=== PATIENT | female | born 1930 | race Caucasian/White ===

== ENCOUNTER 2017-09-30 15:31 | Inpatient (IN) | payer OTHER, BC ==
[~2017-09-30] VITALS: Ht 160 cm; Wt 50.0 kg
[2017-09-30 15:38] VITALS: Ht 160 cm; Wt 50.0 kg
[2017-09-30 16:43] LABS: CALCIUM 8.3 mg/dL (8.5-10.1); CARBON DIOXIDE 25.2 mmol/L (21-32); CHLORIDE SERUM 105 mmol/L (98-107); CREATININE SERUM 0.8 mg/dL (0.6-1.0); GLUCOSE SERUM 167 mg/dL (74-106); POTASSIUM SERUM 4.8 mmol/L (3.5-5.1); SODIUM SERUM 138 mmol/L (136-145)
[2017-09-30 16:48] LABS: ALKALINE PHOSPHATASE 67 U/L (46-116); ALT/SGPT 9 U/L (14-59); AST/SGOT 15 U/L (15-37); BILIRUBIN TOTAL 0.24 mg/dL (0.20-1.00); TOTAL PROTEIN, SERUM 5.5 g/dL (6.4-8.2)
[2017-09-30 16:49] LABS: ALBUMIN 1.9 g/dL (3.4-5.0)
[2017-09-30 16:53] LABS: RED CELL DISTRIBUTION WIDTH 17.5 % (11.5-14.5)
[2017-09-30 17:18] LABS: BAND NEUTROPHIL 0 % (0-10); BASOPHIL 0 % (0-2); MONOCYTE 3 % (0-7); PLATELET MORPHOLOGY PLATELETS INCREASED; SEGMENTED NEUTROPHILS 92 % (37-75); rbc morphology (normal/abnorm) ABNORMAL (NORMAL)
[2017-09-30 17:19] LABS: PLATELET COUNT 652 x10^3mcL (130-400)
[2017-09-30] MEDS ORDERED: AUG500 PO (17:47)
[2017-09-30] MEDS ORDERED: PROVENTIL0.09 MG/A1 INH (17:47)
[2017-09-30] MEDS ORDERED: LOVENOX30 MG/0.3 IJ (17:48)
[2017-09-30] MEDS ORDERED: GOOD SENSE ASP325 MG PO (17:48)
[2017-09-30] MEDS ORDERED: VITAMIN C500 M6 PO (17:48)
[2017-09-30] MEDS ORDERED: MUCINEX600 MG PO (17:49)
[2017-09-30] MEDS ORDERED: TOPROL XL25 MG PO (17:49)
[2017-09-30] MEDS ORDERED: MYRBETRIQ25 MG PO (17:49)
[2017-09-30] MEDS ORDERED: LACTULOSE10 GM/152 PO (17:49)
[2017-09-30 18:06] LABS: MAGNESIUM 1.6 mg/dL (1.8-2.4); PHOSPHOROUS 3.8 mg/dL (2.5-4.9)
[2017-09-30 18:07] LABS: CHOLESTEROL/HDL RATIO 2.7
[2017-09-30 18:16] LABS: FREE T4 1.22 ng/dL (0.76-1.46); FREE THYROXINE INDEX 2.1 ug/dL (1.4-4.5); T4(THYROXINE) 5.9 ug/dL (4.7-13.3)
[2017-09-30 18:23] LABS: RED BLOOD CELLS 2.9 M/mm3 (4.10-5.10)
[2017-09-30 18:42] LABS: IRON 27 ug/dL (50-170); TOTAL IRON BINDING CAPACITY 205 ug/dL (250-450)
[2017-09-30 19:10] VITALS: BP 107/51
[2017-09-30 19:17] VITALS: BP 127/85
[2017-10-01 01:37] LABS: BASOPHIL % 4.1 % (0-2); PLATELET COUNT 437 x10^3mcL (130-400); RED CELL DISTRIBUTION WIDTH 16.1 % (11.5-14.5)
[2017-10-01 05:27] VITALS: BP 105/41
[2017-10-01 06:37] LABS: CALCIUM 7.8 mg/dL (8.5-10.1); CARBON DIOXIDE 23.4 mmol/L (21-32); CHLORIDE SERUM 108 mmol/L (98-107); CREATININE SERUM 0.6 mg/dL (0.6-1.0); GLUCOSE SERUM 87 mg/dL (74-106); MAGNESIUM 2.2 mg/dL (1.8-2.4); PHOSPHOROUS 3.2 mg/dL (2.5-4.9); POTASSIUM SERUM 3.7 mmol/L (3.5-5.1); SODIUM SERUM 135 mmol/L (136-145)
[2017-10-01 07:24] LABS: BASOPHIL % 0.6 % (0-2); PLATELET COUNT 396 x10^3mcL (130-400)
[2017-10-01 09:35] VITALS: BP 89/54
[2017-10-01 13:53] VITALS: BP 112/47
[2017-10-01 17:20] VITALS: BP 114/41
[2017-10-01 17:53] LABS: BASOPHIL % 0.5 % (0-2); PLATELET COUNT 397 x10^3mcL (130-400)
[2017-10-01 18:15] LABS: RED CELL DISTRIBUTION WIDTH 16.3 % (11.5-14.5)
[2017-10-01 20:12] LABS: microscopic required? YES; urine erythrocyte 1+ (NEGATIVE)
[2017-10-01 20:43] VITALS: BP 106/56
[2017-10-01 21:34] LABS: AMPHETAMINE QUAL UR NONE DETECTED (See below)
[2017-10-01 23:26] LABS: T3 TOTAL 0.64 ng/mL
[2017-10-02 04:31] VITALS: BP 120/49
[2017-10-02 06:59] LABS: CALCIUM 7.6 mg/dL (8.5-10.1); CARBON DIOXIDE 23.7 mmol/L (21-32); CHLORIDE SERUM 109 mmol/L (98-107); CREATININE SERUM 0.5 mg/dL (0.6-1.0); GLUCOSE SERUM 78 mg/dL (74-106); MAGNESIUM 1.6 mg/dL (1.8-2.4); PHOSPHOROUS 2.3 mg/dL (2.5-4.9); SODIUM SERUM 142 mmol/L (136-145)
[2017-10-02 08:18] VITALS: BP 128/51
[2017-10-02 09:02] LABS: BASOPHIL % 0.8 % (0-2); PLATELET COUNT 364 x10^3mcL (130-400); RED CELL DISTRIBUTION WIDTH 16.7 % (11.5-14.5)
[2017-10-02 13:25] VITALS: BP 124/58
[2017-10-02 16:48] VITALS: BP 116/48
[2017-10-02 22:14] VITALS: BP 102/50
[2017-10-03 06:09] VITALS: BP 126/51
[2017-10-03 07:14] LABS: CALCIUM 8.1 mg/dL (8.5-10.1); CARBON DIOXIDE 23.8 mmol/L (21-32); CHLORIDE SERUM 106 mmol/L (98-107); GLUCOSE SERUM 76 mg/dL (74-106); MAGNESIUM 1.7 mg/dL (1.8-2.4); PHOSPHOROUS 2.6 mg/dL (2.5-4.9); POTASSIUM SERUM 3.4 mmol/L (3.5-5.1); SODIUM SERUM 139 mmol/L (136-145)
[2017-10-03 07:18] LABS: CREATININE SERUM 0.5 mg/dL (0.6-1.0)
[2017-10-03 08:02] LABS: BASOPHIL % 0.3 % (0-2); PLATELET COUNT 367 x10^3mcL (130-400)
[2017-10-03 08:04] LABS: RED CELL DISTRIBUTION WIDTH 17.2 % (11.5-14.5)
[2017-10-03 09:22] VITALS: BP 124/68
[2017-10-03] MEDS ORDERED: CLEOCIN HCL300 MG PO (10:58)
[2017-10-03] MEDS ORDERED: LEVAQUIN750 MG PO (10:58)
[2017-10-03] MEDS ORDERED: LAC PO (10:59)
[2017-10-03 13:25] VITALS: BP 124/68
[2017-10-03 13:35] VITALS: BP 120/53
[2017-10-03 14:14] LABS: CALCIUM 7.9 mg/dL (8.5-10.1); CARBON DIOXIDE 26.2 mmol/L (21-32); CHLORIDE SERUM 105 mmol/L (98-107); CREATININE SERUM 0.6 mg/dL (0.6-1.0); GLUCOSE SERUM 159 mg/dL (74-106); POTASSIUM SERUM 3.3 mmol/L (3.5-5.1); SODIUM SERUM 137 mmol/L (136-145)
[2017-10-03 17:40] VITALS: BP 146/65; BP 147/57
[2017-10-03] MEDS ORDERED: PANTOPRAZOLE SO40 M1 PO (17:45)
[2017-10-03 21:44] VITALS: BP 122/59
[2017-10-04 05:58] VITALS: BP 134/59
[2017-10-04 06:07] LABS: BASOPHIL % 1.3 % (0-2); PLATELET COUNT 388 x10^3mcL (130-400)
[2017-10-04 06:24] LABS: CALCIUM 8.1 mg/dL (8.5-10.1); CARBON DIOXIDE 25.4 mmol/L (21-32); CHLORIDE SERUM 108 mmol/L (98-107); CREATININE SERUM 0.5 mg/dL (0.6-1.0); GLUCOSE SERUM 100 mg/dL (74-106); MAGNESIUM 1.9 mg/dL (1.8-2.4); PHOSPHOROUS 2.8 mg/dL (2.5-4.9); POTASSIUM SERUM 3.6 mmol/L (3.5-5.1); SODIUM SERUM 138 mmol/L (136-145)
[2017-10-04 06:30] LABS: RED CELL DISTRIBUTION WIDTH 17.1 % (11.5-14.5)
[2017-10-04 09:11] VITALS: BP 134/59
[2017-10-04 09:33] VITALS: BP 124/57
== END 2017-10-04 10:15 | disposition hospice, home (50) | DRG 871 ==
LOC: ED 15:31 → DU 17:32
PROVIDERS: Emergency Medicine; Family Medicine; Family Medicine Sports Medicine; Internal Medicine
PROC: 0DB68ZX Excision of Stomach, Via Natural or Artificial Opening Endoscopic, Diagnostic (ICD-10-PCS; principal; 2017-10-02 12:30)
PROC: 0DJD8ZZ Inspection of Lower Intestinal Tract, Via Natural or Artificial Opening Endoscopic (ICD-10-PCS; 2017-10-02 12:30)
DX: A41.9 Sepsis, unspecified organism (principal); J69.0 Pneumonitis due to inhalation of food and vomit; G93.41 Metabolic encephalopathy; N17.0 Acute kidney failure with tubular necrosis; E43 Unspecified severe protein-calorie malnutrition; K57.31 Diverticulosis of large intestine without perforation or abscess with bleeding; K26.4 Chronic or unspecified duodenal ulcer with hemorrhage; Z68.1 Body mass index [BMI] 19.9 or less, adult; E86.0 Dehydration; K64.8 Other hemorrhoids; D64.9 Anemia, unspecified; E83.42 Hypomagnesemia; I10 Essential (primary) hypertension; E87.6 Hypokalemia
CPT/HCPCS: 43235; 45378; 83880; 84439; 92526-GN; 92610-GN; 94150; 97110-GP; 97116-GP; 97530-GP; C9113; G0480; J1200; J1610; J2250; J2310; J2543; J2916; J3010; J3370; J3475; J3490; J7030; J7040; J7050; J7620; P9016; Q0092; Q0163

== ENCOUNTER 2017-11-25 09:16 | Emergency (ER) | payer OTHER, BC ==
[~2017-11-25] VITALS: Ht 162.6 cm; Wt 49.9 kg
[~2017-11-25 09:16] MED LIST: AUG500 PO; CLEOCIN HCL300 MG PO; GOOD SENSE ASP325 MG PO; LAC PO; LACTULOSE10 GM/152 PO; LEVAQUIN750 MG PO; LOVENOX30 MG/0.3 IJ; MUCINEX600 MG PO; MYRBETRIQ25 MG PO; PANTOPRAZOLE SO40 M1 PO; PROVENTIL0.09 MG/A1 INH; TOPROL XL25 MG PO; VITAMIN C500 M6 PO
[2017-11-25 09:29] VITALS: Ht 162.6 cm; Wt 49.9 kg
[2017-11-25 13:00] VITALS: BP 137/98
== END 2017-11-25 13:00 | disposition home or self-care (01) ==
LOC: ED 09:16
DX: S09.93XA Unspecified injury of face, initial encounter (principal); J45.909 Unspecified asthma, uncomplicated; Z90.710 Acquired absence of both cervix and uterus; W01.0XXA Fall on same level from slipping, tripping and stumbling without subsequent striking against object, initial encounter; Y93.89 Activity, other specified; Y92.89 Other specified places as the place of occurrence of the external cause; Y99.8 Other external cause status
CPT/HCPCS: Q0092

== ENCOUNTER 2019-06-24 15:41 | Emergency (ER) | payer OTHER, BC ==
[~2019-06-24] VITALS: Ht 160 cm; Wt 45.4 kg
[2019-06-24 15:54] VITALS: Ht 160 cm; Wt 45.4 kg
[2019-06-24] MEDS ORDERED: IMODIUM MULTI-S1 TAB PO (17:05)
[2019-06-24] MEDS ORDERED: MP PO (17:06)
[2019-06-24] MEDS ORDERED: MOM PO (17:08)
[2019-06-24] MEDS ORDERED: DULCOLAX10 M1 RC (17:08)
[2019-06-24 21:30] VITALS: BP 141/87
== END 2019-06-24 21:30 | disposition home or self-care (01) ==
LOC: ED 15:41
DX: S00.03XA Contusion of scalp, initial encounter (principal); I10 Essential (primary) hypertension; J45.909 Unspecified asthma, uncomplicated; Z90.710 Acquired absence of both cervix and uterus; W07.XXXA Fall from chair, initial encounter; Y93.89 Activity, other specified; Y92.89 Other specified places as the place of occurrence of the external cause; Y99.8 Other external cause status